=== PATIENT | female | born 1950 ===

== ENCOUNTER 2023-10-09 06:19 | Inpatient (IN) | payer MEDICARE, OTHER, SELFPAY ==
--- NOTE | 2023-09-03 12:17 | CM ---
Patient is scheduled for an elective R THR on 10/09/23. Spoke with patient's daughter, Linda, prior to surgery via telephone. Introduced role of Orthopedic Navigator. She reports that patient lives alone in a second floor condo. There are two steps to
enter the building and then approximately 10 steps, with a landing, to her condo. Once inside everything is on the first floor. She currently functions independently. She has no DME and has never had VN services. PCP is Ceasar Vivas.
Discussed orthopedic program and post surgical plans. Reviewed anticipated length of stay and that goal is for patient to return home at discharge. Daughter is in agreement with tentative plan and will stay with patient initially. She is concerned
about the steps patient has to do at home and may want to have patient go home via ambulance. Patient will need VN services at discharge. Daughter states that her father had services through [facility] and this is who she would like her mother
to use.
Patient will complete online education.
Plan: Orthopedic Navigator will remain available to assist with the care of patient and will reassess discharge needs after surgery.
[2023-09-16 12:42] VITALS: BMI 24.8
[2023-09-16 13:44] LABS: Hematocrit 37.1 % (37.0-47.0); Hemoglobin 12.3 g/dL (12.0-16.0); Mean Corp Hgb Conc. 33.2 g/dL (33.0-37.0); Mean Corpuscular Hgb 29.3 pg (27.0-31.0); Mean Corpuscular Volume 88.3 fL (81.0-99.0); Mean Platelet Volume 9.7 fL (7.4-10.4); Platelet Count 248 10^3/uL (130-400); White Blood Cell Count 6.7 10^3/uL (4.8-10.8)
[2023-09-16 14:44] LABS: ALT (SGPT) 20 U/L (0-35); AST (SGOT) 30 U/L (14-36); Albumin 4.2 g/dl (3.5-5.0); Alkaline Phosphatase 56 U/L (38-126); Blood Urea Nitrogen 22 mg/dl (7-17); Calcium 9.9 mg/dl (8.4-10.2); Carbon Dioxide 25 mmol/L (22-30); Chloride 104 mmol/L (98-107); Estimated Creatinine Clearance 47 ml/min; Glucose 104 mg/dl (70-99); Potassium 4.1 mmol/L (3.5-5.1); Sodium 138 mmol/L (135-145); Total Bilirubin 0.5 mg/dl (0.2-1.3); eGFR > 60.00
[2023-09-16 14:59] VITALS: BMI 24.8
[2023-09-17 08:26] LABS: Glycohemoglobin (HgbA1c) 6.2 % (4.0-5.6)
[2023-10-09] VITALS (14 sets, daily range): BP systolic 87–126; BP diastolic 59–75; PULSE 80; BMI 24.8
[2023-10-09] MEDS: CELEBREX 200 MG PO (07:25)
[2023-10-09] MEDS: TYLENOL 650 MG PO ×5 (07:26→23:07)
[2023-10-09 08:00] LABS: Glucose - Point of Care 100 mg/dl (70-99)
[2023-10-09] MEDS: NORMOSOL-R 1000 IV ×2 (08:03→10:27)
[2023-10-09 09:48] LABS: Glucose - Point of Care 99 mg/dl (70-99)
[2023-10-09] MEDS: ROXICODONE 5 MG PO (10:31)
--- NOTE | 2023-10-09 11:07 | PTCARENOTE ---
Pt arrived to [facility] from PACU s/p R THR. Pt R hip aquacel C/D/I, NV intact. Pt states pain 4-5/10. Pt and daughter oriented to call stephenson and room. Bed locked and in lowest position, call stephenson within reach.
[2023-10-09 11:26] LABS: Glucose - Point of Care 118 mg/dl (70-99)
--- NOTE | 2023-10-09 12:53 | W.PN.ORTHO ---
Today's Communication / Plan
-
D/c when clinically stable.
Assessment
.
Distal Motor Intact: Yes
Dressing:
Clean, dry and intact.
Assessment:
R hip OA s/p Darien aguilar/ Dr Scott 10/09/23
DVT prophylaxis - ASA, b/l venous foot pumps
R hip pain POD 0 - will give IV Toradol STAT and add Lidocaine patches, Gabapentin TIDprn for breakthrough pain
- Continue Tylenol, Celebrex, and Oxycodone prn
- Monitor pain and adjust meds further if indicated
HTN - resume BB - monitor BP
Palpitations, controlled with Carvedilol - continue BB
Chronic gastritis - add Pepcid HS
Chronic constipation - will add MOM HS to bowel regimen of Colace and Senna
Lux-cnbzzwb-kuyfkxzxh diabetes, A1c 6.2 - monitor BS
- Resume home Metformin
- + SSI
- Diabetic, carb controlled diet
- Would benefit from Cefadroxil upon d/c for infection prevention
Hyperlipidemia
Colon polyps
Migraines
Lumbar degenerative disc disease
Interstitial cystitis
Anxiety
Depression.
Osteoporosis
Insomnia
Remote history of infrequent tobacco abuse
Primary language is [place]; however, patient does speak/understand [place] fairly well. Daughter Linda was here to translate further as needed
Plan
.
Surgery / Date: Darien aguilar/ Dr Scott 10/09/23
DVT Prophylaxis: Aspirin
Activity:
Out of bed.
PT/OT
Discharge Plan: Home w/ VN
Subjective
.
.:
Patient appearing to rest comfortably in bed; however, is reporting R hip pain '5-12/15'.
Denies any other new current complaints.
Vital Signs and Labs
.
Vital Signs and Labs:
Lab Results
09/16/23 12:50
03/11/24 12:50
Temp Pulse Resp BP Pulse Ox
97.9 F 60 16 98/64 99
10/09/23 09:31 10/09/23 09:45 10/09/23 09:45 10/09/23 09:33 10/09/23 09:46
Physical Exam
-
HEENT: No pallor, cyanosis, or jaundice. Throat clear.
NECK: Supple. No JVD.
RESPIRATORY: Lungs clear to auscultation.
CVS: S1, S2 normal. RRR.�
ABDOMEN: Soft, non-tender. No distension.
EXTREMITIES: Strength equal, no calf pain with palpation/dorsiflexion. Calves soft.
HAND SPINNER: AOx3. No focal deficits. bonded structures repairer grossly intact
[2023-10-09] MEDS: GLUCOPHAGE 250 MG PO ×2 (13:00→19:35)
[2023-10-09] MEDS: CYMBALTA DELAYED RELEASE 20 MG PO (13:00)
[2023-10-09] MEDS: LIDOCAINE 4% PATCH 2 PATCH TOPICAL (13:31)
[2023-10-09] MEDS: TORADOL 15 MG IV (13:32)
--- NOTE | 2023-10-09 13:53 | W.PN.UPDATE ---
Update Note
Progress Note Update
Did receive a TT from RN re: R calf pain constant since surgery.
Pt was assessed personally by myself around 1 pm today.
Pt appeared comfortable but reported '5-6/10' pain. When asked where her pain was, she pointed solely to her right hip.
I did ask about radiation of pain down her RLE to which she denied.
B/l calves were notably soft, non-edematous, and NTTP without visible warmth or redness.
No pain was reported w/ dorsiflexion of R foot.
Given this, Baclofen was ordered to help w/ pain relief.
I also advised RN to take her R venous foot pump off in the event that was contributing to pain.
Will continue to monitor for now.
--- NOTE | 2023-10-09 14:12 | PTCARENOTE ---
Pt c/o R calf pain. Assessed patient b/l calves, both soft, non-edematous, non-tender to palpation, and no visible warmth or redness noted. Pt states nothing improves or worsens the pain. No pain with dorsiflexion or plantar flexion. Donaldo
notified. She advised taking off R venous foot pump in the event it is contributing to the pain, and ordered Baclofen. Will continue to assess and monitor patient.
[2023-10-09] MEDS: LIORESAL 5 MG PO ×2 (14:27→23:07)
[2023-10-09 16:30] LABS: Glucose - Point of Care 124 mg/dl (70-99)
[2023-10-09] MEDS: ASPIRIN 325 MG PO (17:33)
[2023-10-09] MEDS: ANCEF 5 IV (17:33)
[2023-10-09] MEDS: COLACE 100 MG PO (19:33)
[2023-10-09] MEDS: BACTROBAN 2% OINTMENT 1 APPLIC NASAL (19:33)
[2023-10-09] MEDS: TORADOL 10 MG IV (19:34)
[2023-10-09] MEDS: SENOKOT 17.1999999999999993 MG PO (19:34)
[2023-10-09] MEDS: ELAVIL 10 MG PO (21:19)
[2023-10-09] MEDS: PEPCID 20 MG PO (21:19)
[2023-10-09] MEDS: LIPITOR 20 MG PO (21:19)
[2023-10-09] MEDS: TRICOR 145 MG PO (21:19)
[2023-10-09] MEDS: ROXICODONE 10 MG PO (21:19)
[2023-10-09 21:33] LABS: Glucose - Point of Care 121 mg/dl (70-99)
[2023-10-09] MEDS: AMBIEN 5 MG PO (23:07)
[2023-10-10] MEDS: DILAUDID 0.5 MG IV (00:04)
[2023-10-10 02:48] VITALS: BP 100/58
[2023-10-10] MEDS: ANCEF 5 IV (03:05)
[2023-10-10] MEDS: TYLENOL PO ×2 (03:10→13:17)
[2023-10-10 06:49] LABS: Glucose - Point of Care 143 mg/dl (70-99)
[2023-10-10 07:07] VITALS: BP 85/51
--- NOTE | 2023-10-10 07:14 | PTCARENOTE ---
0645 - this AM pt had a vasovagal episode while on the toilet. BP 95/48, blood sugar was 145. Staff assisted pt back to bed once patient was awake and responsive. Safety maintained. Assessment ongoing.
[2023-10-10 07:29] LABS: Glucose - Point of Care 145 mg/dl (70-99)
[2023-10-10] MEDS: TYLENOL 650 MG PO ×2 (08:02→14:02)
[2023-10-10] MEDS: MOBIC 7.5 MG PO (08:02)
[2023-10-10] MEDS: BACTROBAN 2% OINTMENT 1 APPLIC NASAL (08:02)
[2023-10-10] MEDS: GLUCOPHAGE 250 MG PO (08:02)
[2023-10-10] MEDS: SENOKOT 17.1999999999999993 MG PO (08:02)
[2023-10-10] MEDS: ASPIRIN 325 MG PO (08:02)
[2023-10-10] MEDS: CYMBALTA DELAYED RELEASE 20 MG PO (08:02)
[2023-10-10] MEDS: COLACE 100 MG PO (08:02)
[2023-10-10 08:20] LABS: Hematocrit 29.5 % (37.0-47.0); Hemoglobin 9.6 g/dL (12.0-16.0)
[2023-10-10 08:30] VITALS: BP 101/58; BP 93/54; BP 99/57; PULSE 71; PULSE 78; PULSE 79
[2023-10-10 08:34] LABS: Blood Urea Nitrogen 24 mg/dl (7-17); Calcium 9.1 mg/dl (8.4-10.2); Carbon Dioxide 23 mmol/L (22-30); Chloride 109 mmol/L (98-107); Estimated Creatinine Clearance 47 ml/min; Glucose 134 mg/dl (70-99); Potassium 3.9 mmol/L (3.5-5.1); Sodium 136 mmol/L (135-145); eGFR > 60.00
--- NOTE | 2023-10-10 08:51 | CM ---
Addendum entered by Vidhi Fernandes 10/10/23 13:47:
Patient's daughter is concerned about the calf pain patient has. She is requesting an ultrasound (GALO Cervantes aware and will address). She also wants a cane issued in addition to the walker and commode. She isn't sure that patient has a cane.
Discussed options for obtaining and she asked that Dr. Scott's office be contacted to see if she can get one there.
Call placed to DME coordinator at [facility]; no answer. TT sent to control supervisor, Berkley. She states that they do not have single point canes. Discussed with PT and they will provide cane.
Original Note:
Reviewed chart and held rounds with PT, OT and nursing. Patient admitted as planned for elective R THR. Met with patient and her daughter at bedside. Confirmed information previously obtained for assessment. Also discussed discharge plans. The plan
is for patient to return home at discharge. Her daughter will be staying with her when she goes home. Reviewed VN services including start of care (tentatively 10/10), services to be ordered (PT, OT, SN) and frequency/duration of services. Options
list provided and PAC data reviewed. Patient selects [facility].
Patient has a cane at home. Discussed need for hip kit which daughter will obtain. She will need a rolling walker for home use; script obtained and given to PT.
VN referral was completed and sent to [facility] through [employer] with request for start of care on 10/10. Spoke with Martha at [facility] who confirms their ability to accept referral. patient insurance clerk to fax discharge instructions to [facility]
when complete.
Patient will use [facility] for discharge prescriptions.
--- NOTE | 2023-10-10 09:56 | W.PN.ORTHO ---
Today's Communication / Plan
-
Monitor BPs.
Work w/ PT and OT as able.
Possible d/c later today pending clinical stability.
Assessment
.
Distal Motor Intact: Yes
Dressing:
Clean, dry and intact.
Assessment:
R hip OA s/p R LLOYD w/ Dr Scott 10/09/23
DVT prophylaxis - ASA
Syncope early POD 1 - likely vasovagal per overnight RN report due to visible straining in bathroom (pt has a h/o constipation)
- Asked pt to avoid straining. MOM/Colace/Senna should help w/ BMs
- Labs w/ hgb of 9.6 (not indicative of significant anemia needing blood transfusion), electrolytes and glucose stable
- EKG NSR
- Orthostatic VS WNL; however, BP noted to be low. Will provide small IVF bolus and encourage oral hydration. Will change Oxycodone to Tramadol for severe pain PRN
- Monitor and work w/ therapy as able
R calf pain - reportedly relieved w/ Baclofen BIDprn, removing both venous foot pumps and ELBA hose stockings
- B/l calves continue to be soft, NTTP, non-edematous, without redness or warmth. No pain w/ dorsiflexion of b/l feet. No clinical concerns for DVT
HTN - hypotension noted post-op - BB held POD 1 and measures above taken to improve BP
Palpitations, controlled with Carvedilol - continue BB w/ BP stabilized
Chronic gastritis - added Pepcid HS
Chronic constipation - Continue MOM HS to bowel regimen of Colace and Senna
Myr-msuyeab-vqnoxllfy diabetes, A1c 6.2 - BS readings overall stable
- Resumed home Metformin
- Thankfully minimal need for SSI
- Diabetic, carb controlled diet
- Would benefit from Cefadroxil upon d/c for infection prevention
Hyperlipidemia
Colon polyps
Migraines
Lumbar degenerative disc disease
Interstitial cystitis
Anxiety
Depression.
Osteoporosis
Insomnia
Remote history of infrequent tobacco abuse
Primary language is [place]; however, patient does speak/understand [place]e fairly well. Daughter Linda was here to translate further as needed
Plan
.
Surgery / Date: R LLOYD w/ Dr Scott 10/09/23
DVT Prophylaxis: Aspirin
Activity:
Out of bed.
PT/OT
Discharge Plan: Home w/ VN
Subjective
.
.:
Patient resting comfortably in bed this AM.
Brief syncopal episode early today, likely vasovagal in nature.
Denies any other new complaints. R calf pain reportedly improved today.
Eager for potential d/c later today.
Vital Signs and Labs
.
Vital Signs and Labs:
Lab Results
10/10/23 08:11
10/10/23 08:11
Temp Pulse Resp BP Pulse Ox
98.2 F 70 18 85/51 94
10/10/23 07:07 10/10/23 07:07 10/10/23 07:07 10/10/23 07:07 10/10/23 07:07
Non-invasive Hgb result: 10.7
Physical Exam
-
HEENT: No pallor, cyanosis, or jaundice. Throat clear.
NECK: Supple. No JVD.
RESPIRATORY: Lungs clear to auscultation.
CVS: S1, S2 normal. RRR.�
ABDOMEN: Soft, non-tender. No distension.
EXTREMITIES: Strength equal, no calf pain with palpation/dorsiflexion. Calves soft.
ESTATE TAX EXAMINER: AOx3. No focal deficits. check writing machine operator grossly intact
[2023-10-10] MEDS: NSS 500 IV (10:00)
[2023-10-10] MEDS: LIDOCAINE 4% PATCH TOPICAL (11:01)
[2023-10-10 11:55] VITALS: BP 103/62; BP 119/60; PULSE 73; O2SAT 96
[2023-10-10 12:16] LABS: Glucose - Point of Care 101 mg/dl (70-99)
[2023-10-10 13:39] VITALS: BP 107/58; BP 99/56; PULSE 80; O2SAT 93
--- NOTE | 2023-10-10 13:59 | W.PN.UPDATE ---
Update Note
Progress Note Update
Prior to d/c, pt complained once again of intermittent R-sided calf pain.
As I was told her calf pain had resolved earlier (with measures I put in place yesterday), I went personally into the patient's room to evaluate her. Pt's daughter Linda was still present during translation.
There was no pain reported with palpation of either calf. ELBA hose stockings were off for visible inspection. Calves remain soft, NTTP, non-edematous, with no signs of redness or warmth.
Pt's daughter did ask about a possible U/S to rule out DVT. I proceeded to tell her I could order one urgently but I don't know how quickly we could get it done.
Pt's daughter asked if we could get it done within the next hour, to which I replied 'I can order it right away but can't guarantee it won't take some time for her results to come back.'
Given this information, the patient and her daughter chose to forgo the U/S and just monitor at home.
Low suspicion of DVT currently based off intermittent calf pain and lack of physical exam signs.
Her daughter Linda is a home theatre technician. I explained to her the warning signs of possible DVT and advised her to take Jayleen to the ER should one of these signs present.
Jayleen is aware to keep up with daily ASA x4 weeks for blood clot prevention and to get up and move frequently as much as tolerated.
--- NOTE | 2023-10-10 14:15 | W.DS.TRANS ---
DC Summary - Host Hostess
-
Discharge Instructions:
Sleep Apnea Risk Low
Discharge Diagnosis/Procedures R hip OA s/p R LLOYD w/ Dr Scott 10/09/23
Diet Diabetic, Carb Controlled
Activity As tolerated,With Walker
Driving Restrictions Not until seen by your Dr
Bathing Restrictions OK to Shower
Other Services PT,VN,OT
Wound Care Dressing to be removed 1 week post-surgery.
Instructions:
Stand-Alone Forms: Total Hip/Knee Replacement D/C
Changes to Home Medications: Yes
Discharge Medications:
DC Medications w/original date entered in [place] [facility]
amitriptyline 10 mg tablet 10 mg PO HS Depression 09/11/23
atorvastatin 20 mg tablet 20 mg PO HS High Cholesterol 09/11/23
docusate sodium 100 mg capsule (Colace) 100 mg PO BID Constipation 09/11/23
duloxetine 20 mg capsule,delayed release (Cymbalta) 20 mg PO DAILY Depression 09/11/23
fenofibrate nanocrystallized 145 mg tablet 145 mg PO HS triglycerides 09/11/23
metformin 500 mg tablet 250 mg PO BID Diabetes 09/11/23
mupirocin 2 % topical ointment 1 applic intranasal BID #1 tube 09/16/23
Saccharomyces boulardii 250 mg capsule (Florastor) 250 mg PO BID #14 caps 10/10/23
acetaminophen 500 mg tablet (Tylenol Extra Strength) 1,000 mg (2 x 500 mg) PO Q6H pain #60 tabs 10/10/23
baclofen 5 mg tablet 5 mg PO BID PRN muscle spasms #10 tabs 10/10/23
carvedilol 1.25 mg PO DAILY Blood Pressure ##0 10/10/23
cefadroxil 500 mg capsule 500 mg PO BID #14 caps 10/10/23
famotidine 20 mg tablet 20 mg PO HS #30 tabs 10/10/23
lidocaine 4 % topical patch 2 patch topical DAILY #30 ea 10/10/23
magnesium hydroxide 400 mg/5 mL oral suspension 30 ml PO HS #3,780 mL 10/10/23
meloxicam 7.5 mg tablet 7.5 mg PO DAILY #30 tabs 10/10/23
ondansetron HCl 4 mg tablet 4 mg PO Q6H PRN nausea and vomiting #30 tabs 10/10/23
sennosides 8.6 mg tablet (Senna Laxative) 17.2 mg (2 x 8.6 mg) PO BID #30 tabs 10/10/23
tramadol 50 mg tablet 50 - 100 mg (1 - 2 x 50 mg) PO Q6HPRN PRN moderate-severe pain #30 tabs 10/10/23
zolpidem 5 mg tablet (Ambien) 5 mg PO HS PRN sleep #0 tabs 10/10/23
Home Medication Changes
Saccharomyces boulardii 250 mg capsule (Florastor) 250 mg PO BID #14 caps 10/10/23
acetaminophen 500 mg tablet (Tylenol Extra Strength) 1,000 mg (2 x 500 mg) PO Q6H pain #60 tabs 10/10/23
baclofen 5 mg tablet 5 mg PO BID PRN muscle spasms #10 tabs 10/10/23
cefadroxil 500 mg capsule 500 mg PO BID #14 caps 10/10/23
famotidine 20 mg tablet 20 mg PO HS #30 tabs 10/10/23
lidocaine 4 % topical patch 2 patch topical DAILY #30 ea 10/10/23
magnesium hydroxide 400 mg/5 mL oral suspension 30 ml PO HS #3,780 mL 10/10/23
meloxicam 7.5 mg tablet 7.5 mg PO DAILY #30 tabs 10/10/23
ondansetron HCl 4 mg tablet 4 mg PO Q6H PRN nausea and vomiting #30 tabs 10/10/23
sennosides 8.6 mg tablet (Senna Laxative) 17.2 mg (2 x 8.6 mg) PO BID #30 tabs 10/10/23
tramadol 50 mg tablet 50 - 100 mg (1 - 2 x 50 mg) PO Q6HPRN PRN moderate-severe pain #30 tabs 10/10/23
aspirin 325 mg PO daily #30
Pending Results: No
[2023-10-10 15:55] VITALS: BP 106/61
== END 2023-10-10 16:06 | disposition home health service (06) | DRG 470 ==
LOC: 2 SOUTH 06:19
PROVIDERS: Physician Assistant; ADMITTING PHYSICIAN Orthopaedic Surgery; FAMILY PHYSICIAN Internal Medicine
PROC: 0SR903A Replacement of Right Hip Joint with Ceramic Synthetic Substitute, Uncemented, Open Approach (ICD-10-PCS; 2023-10-09)
DX: M16.11 Unilateral primary osteoarthritis, right hip (principal); I10 Essential (primary) hypertension; E78.5 Hyperlipidemia, unspecified; K29.50 Unspecified chronic gastritis without bleeding; K59.09 Other constipation; E11.9 Type 2 diabetes mellitus without complications; G43.909 Migraine, unspecified, not intractable, without status migrainosus; R00.2 Palpitations; M51.36 Other intervertebral disc degeneration, lumbar region; F41.9 Anxiety disorder, unspecified; F32.A Depression, unspecified; M81.0 Age-related osteoporosis without current pathological fracture; G47.00 Insomnia, unspecified; R55 Syncope and collapse; M79.661 Pain in right lower leg; I95.81 Postprocedural hypotension; Z87.891 Personal history of nicotine dependence; Z86.010 Personal history of colon polyps; Z79.84 Long term (current) use of oral hypoglycemic drugs
CPT/HCPCS: 36415; 73502; 80048; 80053; 82962; 83036; 85014; 85018; 85027; 87070; 93005; 97110; 97116; 97162; 97166; 97535; C1776